=== PATIENT | female | born 1960 | race Caucasian/White ===

== ENCOUNTER 2020-07-05 07:49 | Outpatient (REF) | payer OTHER, SELFPAY | END 2020-07-05 07:50 | disposition home or self-care (01) | LOC: HO.LAB 07:49 | PROVIDERS: Visit Provider Internal Medicine | DX: Z20.828 Contact with and (suspected) exposure to other viral communicable diseases (principal) | CPT/HCPCS: C9803; U0003 ==

== ENCOUNTER 2021-03-06 06:43 | Emergency (ER) | payer SELFPAY ==
[2021-03-06 07:30] VITALS: BP 147/59; PULSE 97; RESP 16; TEMP 36.4; O2SAT 92; BMI 26.4
--- NOTE | 2021-03-06 07:31 | ED_ITS ---
HPI - Psych General Stated Complaint: psychiatric symptoms Time Seen by Provider: 03/06/21 07:31 Source: patient Mode of arrival: ambulatory Limitations: no limitations History of Present Illness MD complaint: anxiety (insomnia) Onset (ago): day(s) (4) Duration: constant History of same: Yes Relieving factors: none Exacerbating factors: medication (just started on 30mg methadone 4 days ago) Context: new medication(s) Associated psychiatric symptoms: other (insomnia and anxiety) Associated symptoms: denies other symptoms Treatments prior to arrival: none Related Data Allergies Allergy/AdvReac Type Severity Reaction Status Date / Time erythromycin base AdvReac Mild NAUSEA AND Unverified 04/21/20 15:09 [Erythromycin Base] VOMITING Azithromycin Allergy Unknown Uncoded 01/07/12 00:00 Flexeril Allergy Unknown Uncoded 01/07/12 00:00 From FLEXERIL Allergy Unknown HIVES Uncoded 04/21/20 15:09 From Vicodin Allergy Unknown RASH, Uncoded 04/21/20 15:09 FACIAL SWELLING Review of Systems Review of Systems: Constitutional : No Fever, No Chills ENT/Mouth : No Ear Pain, No Nasal Congestion, No sore throat Eyes: No Eye Pain, No Swelling, No Redness Cardiovascular : No Chest Pain, No SOB Respiratory : No Cough, No Sputum, No Dyspnea Gastrointestinal : No Nausea, No Vomiting, No Diarrhea, No Hematochezia, No Melena Genitourinary : No Dysuria, No Urinary Frequency, No Hematuria Musculoskeletal : No Myalgias Skin : No Skin Lesions, No rash Neuro : No Weakness, No Numbness, No Paresthesias, No Dizziness, No Headache Psych : positive Anxiety, positive Depression, no SI/HI Heme/Lymph: No Lymphadenopathy Endocrine : No Polyuria, No Polydipsia All other systems reviewed and are negative [facility] Past Medical History Attestation statement: The following information was validated with the patient. Medical History Opiate use Social History Social History (Updated 03/06/21 @ 07:40 by Zoraida Lindsey DO) Patient Tobacco Use Status: Current someday Tobacco user Substance Use Type: Former Substance User Patient : No Physical Exam Vital Signs: Appearance: Alert. Oriented X3. No acute distress. Anxious/tearful Eyes: Pupils equal, round and reactive to light. ENT: Pharynx normal. Neck: Normal inspection. Neck supple. CVS: Normal heart rate and rhythm. Pulses normal. Respiratory: No respiratory distress. Breath sounds normal. Abdomen: Soft and nontender. Skin: Skin warm and dry. Normal skin color. Normal skin turgor. Extremities: No lower extremity edema. No calf ttp Neuro: Oriented X 3. No motor deficit. No sensory deficit. Psych: no SI/HI, no delusions or paranoia MDM - Psych MDM Narrative Medical decision making narrative: 60 yo female with opiate use disorder - just started methadone 4 days ago having insomnia - no SI, declines BHN, daughter is with her they just want to see her own doctor and therapist, at this time she has a good support system, no SI/HI, GCS 15 - offered her to return at any time but I do not feel she warrants a section Discharge Plan Discharge Clinical Impression: Insomnia Instructions: Insomnia (ED) Additional Instructions: return to ED for any worsening symptoms or concerns please go to the clinic and talk to your provider, you can come back to the ED at any time
[2021-03-06 07:49] VITALS: BP 147/59; PULSE 97; RESP 17; TEMP 36.4; O2SAT 97
== END 2021-03-06 07:53 | disposition home or self-care (01) ==
LOC: HO.ED 07:53
PROVIDERS: Emergency Provider Emergency Medicine
DX: F41.9 Anxiety disorder, unspecified (principal); G47.00 Insomnia, unspecified; F11.20 Opioid dependence, uncomplicated; F17.210 Nicotine dependence, cigarettes, uncomplicated
CPT/HCPCS: 99282; 99283